=== PATIENT | male | born 1985 | race Caucasian/White ===

== ENCOUNTER 2017-04-27 23:26 | Emergency (ER) | payer SELFPAY ==
[2017-04-27 23:43] VITALS: BP 109/71
== END 2017-04-28 01:53 | disposition home or self-care (01) ==
LOC: ED 23:26
DX: R11.10 Vomiting, unspecified (principal); R06.00 Dyspnea, unspecified
CPT/HCPCS: Q0162

== ENCOUNTER 2017-07-25 01:14 | Emergency (ER) | payer MEDICAID ==
[2017-07-25 02:31] VITALS: BP 123/86
== END 2017-07-25 02:32 | disposition home or self-care (01) ==
LOC: ED 01:14
DX: R50.9 Fever, unspecified (principal); M79.1 Myalgia
CPT/HCPCS: 87804; J1885

== ENCOUNTER 2017-12-27 21:43 | Emergency (ER) | payer OTHER ==
[~2017-12-27] VITALS: Ht 160 cm; Wt 73.9 kg
[2017-12-27 21:53] VITALS: BP 131/87; Ht 160 cm; Wt 73.9 kg
== END 2017-12-27 23:55 | disposition left against medical advice (07) ==
LOC: ED 21:43
DX: Z53.21 Procedure and treatment not carried out due to patient leaving prior to being seen by health care provider (principal)

== ENCOUNTER 2017-12-28 09:26 | Emergency (ER) | payer OTHER ==
[~2017-12-28] VITALS: Ht 162.6 cm; Wt 86.2 kg
[2017-12-28 09:37] VITALS: Ht 162.6 cm; Wt 86.2 kg
[2017-12-28 10:57] VITALS: BP 121/69
== END 2017-12-28 10:57 | disposition home or self-care (01) ==
LOC: ED 09:26
DX: J20.9 Acute bronchitis, unspecified (principal)
CPT/HCPCS: Q0092